=== PATIENT | female | born 1990 | race Two or more races ===

== ENCOUNTER 2021-08-30 13:24 | Inpatient (IN) | payer SELFPAY ==
[2021-08-30] MEDS ORDERED: Ondansetron 4 MG/2 ML SDV IVPUSH PRN (18:03)
[2021-08-30] MEDS ORDERED: Sodium Chloride 0.9% 10 ML Syringe FLUSH PRN (18:03)
[2021-08-30] MEDS ORDERED: Nalbuphine 10 MG/1 ML Vial IVPUSH PRN (18:03)
[2021-08-30] MEDS ORDERED: Lidocaine 1% 50 ML MDV INJECT ONE (18:03)
[2021-08-30] MEDS ORDERED: Oxytocin/Lactated Ringers 10 UNIT/1,000 ML BAG IV SCH ×2 (18:15)
[2021-08-30] MEDS ORDERED: Ampicillin 2 GM in Sodium Chloride 0.9% 100 ML IV ONE (18:30)
[2021-08-30] MEDS: Lactated Ringers 1,000 ML IV SCH (18:39)
[2021-08-30] MEDS ORDERED: Sodium Chloride 0.9% 10 ML Syringe FLUSH SCH (21:00)
[2021-08-30] MEDS: Ampicillin 1 GM in Sodium Chloride 0.9% 100 ML IV SCH (22:27)
[2021-08-31] MEDS ORDERED: Acetaminophen 325 MG Tab PO PRN ×2 (00:23→05:46)
[2021-08-31] MEDS: Ampicillin 1 GM in Sodium Chloride 0.9% 100 ML IV SCH (02:26)
[2021-08-31] MEDS: Lactated Ringers 1,000 ML IV SCH (02:27)
[2021-08-31] MEDS ORDERED: Misoprostol 200 MCG Tab ONE (04:31)
[2021-08-31] MEDS ORDERED: Oxytocin/Lactated Ringers 20 UNIT/1,000 ML BAG ONE (04:36)
[2021-08-31] MEDS ORDERED: Carboprost Tromethamine 250 MCG/1 ML Amp ONE (04:36)
[2021-08-31] MEDS ORDERED: Carboprost Tromethamine 250 MCG/1 ML Amp IM ONE (04:59)
[2021-08-31] MEDS ORDERED: Misoprostol 100 MCG Tab PO ONE (04:59)
[2021-08-31] MEDS ORDERED: Oxytocin/Lactated Ringers 20 UNIT/1,000 ML BAG IV SCH (05:00)
[2021-08-31] MEDS ORDERED: Sodium Chloride 0.9% 1,000 ML IV SCH ×4 (05:00→21:00)
[2021-08-31] MEDS ORDERED: Benzocaine/Menthol 20%-0.5% Spray 78 GM Cannister TOP PRN (05:46)
[2021-08-31] MEDS ORDERED: Docusate Sodium 100 MG Cap PO PRN (05:46)
[2021-08-31] MEDS ORDERED: Ibuprofen 600 MG Tab PO PRN (05:46)
[2021-08-31] MEDS ORDERED: Witch Hazel Medicated Pads 40/Jar TOP PRN (05:46)
[2021-08-31] MEDS ORDERED: Atropine/Diphenoxylate 0.025-2.5 MG Tab PO ONE ×2 (06:22→06:44)
[2021-08-31] MEDS: Misoprostol 200 MCG Tab PO SCH ×5 (07:46→18:20)
[2021-08-31] MEDS: Ferrous Sulfate 324 MG Tab.EC PO SCH ×2 (11:06→18:20)
[2021-08-31] MEDS: Prenatal Multivitamin with Calcium/Folic Acid/Iron Tab PO SCH (11:07)
[2021-09-01] MEDS: Prenatal Multivitamin with Calcium/Folic Acid/Iron Tab PO SCH (08:50)
[2021-09-01] MEDS: Ferrous Sulfate 324 MG Tab.EC PO SCH (08:50)
[2021-09-01 11:55] VITALS: BP 118/60; PULSE 70
== END 2021-09-01 15:15 | disposition home or self-care (01) | DRG 807 ==
LOC: JD.OBCHECK 13:24 → JD.OB 13:30 → JD.OBCHECK 17:59 → JD.OB 18:00 → OBSVTOIN 08-31 04:22 → JD.OB 08-31 04:23
PROVIDERS: ADMIT Obstetrics & Gynecology; ATTEND Obstetrics & Gynecology
PROC: 10E0XZZ Delivery of Products of Conception, External Approach (ICD-10-PCS; principal; 2021-08-31)
PROC: 10907ZC Drainage of Amniotic Fluid, Therapeutic from Products of Conception, Via Natural or Artificial Opening (ICD-10-PCS; 2021-08-31)
PROC: 30233N1 Transfusion of Nonautologous Red Blood Cells into Peripheral Vein, Percutaneous Approach (ICD-10-PCS; 2021-08-31)
PROC: 0HQ9XZZ Repair Perineum Skin, External Approach (ICD-10-PCS; 2021-08-31)
DX: O16.4 Unspecified maternal hypertension, complicating childbirth (principal); Z37.0 Single live birth; Z3A.39 39 weeks gestation of pregnancy; O99.824 Streptococcus B carrier state complicating childbirth; O72.1 Other immediate postpartum hemorrhage; Z86.16 Personal history of COVID-19; Z20.822 Contact with and (suspected) exposure to COVID-19; O70.0 First degree perineal laceration during delivery
CPT/HCPCS: 36415; 36430; 59025; 59409; 80053; 82565; 82570; 83615; 84156; 84450; 84460; 84520; 84550; 85014; 85018; 85025; 85362; 85384; 85610; 85730; 86592; 86780; 86850; 86900; 86901; 86922; A9270-GY; J0290; J2405; J2590; J7030; J7120; P9016; U0002

== ENCOUNTER 2022-07-24 05:49 | Emergency (ER) | payer BC ==
[2022-07-24] MEDS ORDERED: Aspirin 81 MG Tab.Chew PO ONE (06:08)
[2022-07-24] MEDS ORDERED: Nitroglycerin 2% Oint 1 GM UD Packet TOP ONE (07:14)
[2022-07-24] MEDS ORDERED: Morphine 2 MG/ML SYRINGE IVPUSH ONE (07:16)
[2022-07-24 15:24] VITALS: BP 115/54; PULSE 65
== END 2022-07-24 15:10 | disposition home or self-care (01) ==
LOC: JD.ED 05:49
DX: R07.2 Precordial pain (principal); R77.8 Other specified abnormalities of plasma proteins; Z86.16 Personal history of COVID-19
CPT/HCPCS: 36415; 71045; 80053; 80306; 81025; 83880; 84484; 85025; 85379; 85610; 85730; 93005; 93306; 99285; A9270

== ENCOUNTER 2025-02-22 18:13 | Emergency (ER) | payer BC, OTHER ==
[2025-02-22] MEDS: Ketorolac 60 MG/2 ML SDV IM ONE (18:38)
[2025-02-22] MEDS: cefTRIAXone 1 GM, Lidocaine 1% 2.1 ML IM STA (18:39)
[2025-02-22 18:56] VITALS: BP 138/70; PULSE 72
== END 2025-02-22 18:50 | disposition home or self-care (01) ==
LOC: JD.ED 18:13
DX: S02.5XXA Fracture of tooth (traumatic), initial encounter for closed fracture (principal); K04.7 Periapical abscess without sinus; K02.9 Dental caries, unspecified; I10 Essential (primary) hypertension; E11.9 Type 2 diabetes mellitus without complications; Z86.16 Personal history of COVID-19; Z79.899 Other long term (current) drug therapy; X58.XXXA Exposure to other specified factors, initial encounter
CPT/HCPCS: 96372; 99282; A9270; J0696; J1885; J2003; 99283